=== PATIENT | male | born 1950 | race Two or more races ===

== ENCOUNTER 2022-01-12 15:09 | Inpatient (IN) | payer MEDICAID, OTHER ==
[~2022-01-12] VITALS: Ht 170.2 cm; Wt 91.5 kg
[2022-01-12] MEDS ORDERED: SODIUM CHLORIDE 0.9% 1,000 ML IV ONE (15:30)
[2022-01-12] MEDS ORDERED: ACCU-CHEK COMFORT CURVE STRIP VI ONE (15:30)
[2022-01-12 16:00] LABS: Basophils # (auto) 0 10 ^3/uL (0-0.2); Basophils % (auto) 0.4 % (0.0-2.0); Eosinophils # (auto) 0 10 ^3/uL (0-0.8); Eosinophils % (auto) 0.7 % (0.0-7.0); Hematocrit 38.1 % (41.0-53.0); Lymphocytes # (auto) 0.2 10 ^3/uL (0.4-5.4); Mean Corpuscular Hemoglobin 30.5 pg (28.0-32.0); Mean Corpuscular Hgb Conc. 34.2 g/dL (32.0-36.0); Mean Corpuscular Volume 89.1 fL (80.0-100.0); Monocytes # (auto) 0.2 10 ^3/uL (0-1.3); Monocytes % (auto) 4.1 % (0.0-12.0); Neutrophils # (auto) 3.7 10 ^3/uL (1.6-8.6); Neutrophils % (auto) 90.8 % (37.0-80.0); Red Blood Cells 4.28 10^6/uL (4.5-5.90); Red Cell Distribution Width 14.4 % (11.8-14.3); White Blood Cell 4.1 10^3/uL (4.4-10.8)
[2022-01-12 16:18] LABS: INR 0.98 (0.9-1.15); Partial Thromboplastin Time 26.3 sec (24.6-33.4)
[2022-01-12 16:19] LABS: Albumin 3.4 g/dL (3.4-5.0); Calcium 8.5 mg/dL (8.5-10.1); Potassium 4.7 mmol/L (3.5-5.1)
[2022-01-12 16:20] LABS: BUN/Creatinine Ratio 13.3
[2022-01-12 16:28] LABS: Bilirubin, Total 0.4 mg/dL (0.2-1.0); Total Protein 6.8 g/dL (6.4-8.2)
[2022-01-12] MEDS ORDERED: levoFLOXacin 500MG 100 ML IV ONE (18:45)
[2022-01-12] MEDS ORDERED: NITROGLYCERIN 0.4 MG SL TAB SL PRN (20:00)
[2022-01-12] MEDS ORDERED: MORPHINE SULFATE INJ 2 MG/ml SYRG IV PRN (20:00)
[2022-01-12] MEDS ORDERED: PANTOPRAZOLE 40 MG/10 ML VIAL INJ IV ONE (20:00)
[2022-01-12] MEDS ORDERED: DOCUSATE SOD 100 MG CAP PO PRN (20:00)
[2022-01-12] MEDS ORDERED: ACETAMINOPHEN 325 MG TAB PO PRN (20:00)
[2022-01-12] MEDS: SODIUM CHLORIDE 0.9% 1,000 ML IV SCH (21:10)
[2022-01-13 00:05] LABS: % Iron Saturation 86.4 % (20-55)
[2022-01-13] MEDS: HYDROcodone-ACET 5/325MG TAB PO PRN ×3 (00:49→23:38)
[2022-01-13] MEDS: ONDANSETRON HCL 4 MG/2 ML VIAL IV PRN ×2 (00:50→11:13)
[2022-01-13 04:39] LABS: Albumin 2.9 g/dL (3.4-5.0); Basophils # (auto) 0 10 ^3/uL (0-0.2); Basophils % (auto) 0.4 % (0.0-2.0); Calcium 8.1 mg/dL (8.5-10.1); Eosinophils # (auto) 0 10 ^3/uL (0-0.8); Eosinophils % (auto) 1.2 % (0.0-7.0); Hematocrit 33.7 % (41.0-53.0); Hemoglobin 11.6 g/dL (13.5-17.5); Lymphocytes # (auto) 0.2 10 ^3/uL (0.4-5.4); Lymphocytes % (auto) 7.3 % (10.0-50.0); Mean Corpuscular Hemoglobin 30.3 pg (28.0-32.0); Mean Corpuscular Hgb Conc. 34.5 g/dL (32.0-36.0); Mean Corpuscular Volume 87.7 fL (80.0-100.0); Monocytes # (auto) 0.2 10 ^3/uL (0-1.3); Monocytes % (auto) 5.2 % (0.0-12.0); Neutrophils # (auto) 2.8 10 ^3/uL (1.6-8.6); Neutrophils % (auto) 85.9 % (37.0-80.0); Nucleated Red Blood Cells % 0.1 %; Potassium 4.3 mmol/L (3.5-5.1); Red Blood Cells 3.85 10^6/uL (4.5-5.90); White Blood Cell 3.2 10^3/uL (4.4-10.8)
[2022-01-13 04:43] LABS: Bilirubin, Total 0.4 mg/dL (0.2-1.0)
[2022-01-13 04:55] LABS: Urine Bacteria NONE SEEN /hpf (None Seen); Urine Blood Negative /uL (Negative); Urine Specific Gravity 1.014 (1.001-1.035); Urine WBC 4 /hpf (0 - 3)
[2022-01-13] MEDS: SODIUM CHLORIDE 0.9% 1,000 ML IV SCH ×2 (06:55→16:00)
[2022-01-13] MEDS: PANTOPRAZOLE 40 MG/10 ML VIAL INJ IV SCH (10:00)
[2022-01-13] MEDS: levoFLOXacin 250MG 50 ML IV SCH (10:00)
[2022-01-13] MEDS: ENOXAPARIN SOD 40 MG/0.4 ML SYRINGE SC SCH ×2 (10:00→11:17)
[2022-01-13] MEDS ORDERED: LEVO500T31 PO (17:23)
[2022-01-13] MEDS ORDERED: ALBUAER3 IN (17:23)
[2022-01-13 22:00] VITALS: BP 139/70
[2022-01-13 22:56] VITALS: BP 120/86
[2022-01-14] MEDS ORDERED: guaiFENesin 200 MG/10 ML UD PO PRN (01:45)
[2022-01-14] MEDS: SODIUM CHLORIDE 0.9% 1,000 ML IV SCH ×2 (04:51→12:00)
[2022-01-14 05:00] VITALS: BP 117/85
[2022-01-14 08:00] VITALS: BP 133/79
[2022-01-14] MEDS: HYDROcodone-ACET 5/325MG TAB PO PRN ×2 (08:49→12:45)
[2022-01-14 09:00] VITALS: BP 133/79
[2022-01-14] MEDS: levoFLOXacin 250MG 50 ML IV SCH (09:51)
[2022-01-14] MEDS: PANTOPRAZOLE 40 MG/10 ML VIAL INJ IV SCH (09:52)
[2022-01-14] MEDS: ENOXAPARIN SOD 40 MG/0.4 ML SYRINGE SC SCH (11:45)
[2022-01-14 13:00] VITALS: BP 146/80
[2022-01-14 15:31] VITALS: BP 146/80
== END 2022-01-14 16:30 | disposition home or self-care (01) | DRG 139 ==
LOC: ER 15:09 → EDBD 15:09 → TELE 20:00 → TELE-WESTW 01-13 22:10
PROVIDERS: ADMIT Nurse Practitioner Family; ATTEND Internal Medicine
DX: J18.9 Pneumonia, unspecified organism (principal); N17.9 Acute kidney failure, unspecified; E87.1 Hypo-osmolality and hyponatremia; D64.9 Anemia, unspecified; E78.5 Hyperlipidemia, unspecified; R55 Syncope and collapse; E86.0 Dehydration; F17.200 Nicotine dependence, unspecified, uncomplicated; I10 Essential (primary) hypertension; Z20.822 Contact with and (suspected) exposure to COVID-19; R73.9 Hyperglycemia, unspecified; Z85.118 Personal history of other malignant neoplasm of bronchus and lung
CPT/HCPCS: 36415; 70450; 70551; 71045; 80053; 81001; 82962; 83540; 83550; 84484; 85025; 85610; 85730; 87040; 87426; 93005; 93306; 93886; 96361; 96365; 96375; 96376; 97163; C9113; G0378; J1956; J2405